=== PATIENT | male | born 2000 | race Caucasian/White ===

== ENCOUNTER 2020-07-04 20:28 | Emergency (ER) | payer OTHER ==
[~2020-07-04] VITALS: Ht 180.3 cm; Wt 68.0 kg
[~2020-07-04 20:28] MED LIST: PREDNISONE 10 M10 MG PO; PULMICORT FLEX90 MCG INH
[2020-07-04 21:45] VITALS: BP 133/75
== END 2020-07-04 21:46 | disposition home or self-care (01) ==
LOC: M.ERS 20:28
DX: Z20.828 Contact with and (suspected) exposure to other viral communicable diseases (principal)

== ENCOUNTER 2021-02-13 16:54 | Emergency (ER) | payer OTHER ==
[~2021-02-13] VITALS: Ht 177.8 cm; Wt 70.3 kg
[2021-02-13] MEDS ORDERED: PREDNISONE 20 M20 M1 PO (18:04)
[2021-02-13 18:16] VITALS: BP 122/67
== END 2021-02-13 18:17 | disposition home or self-care (01) ==
LOC: M.ERS 16:54
DX: T78.1XXA Other adverse food reactions, not elsewhere classified, initial encounter (principal); Z91.018 Allergy to other foods; X58.XXXA Exposure to other specified factors, initial encounter